=== PATIENT | female | born 1975 | race African-American/Black ===

== ENCOUNTER 2018-07-30 21:10 | Emergency (ER) | payer MEDICAID ==
[2018-07-30] MEDS ORDERED: hydrOXYzine 25 MG TAB ONE (21:50)
[2018-07-30] MEDS ORDERED: methylPREDNISolone Acetate 40 mg/ml Vial ONE (21:50)
== END 2018-07-30 22:14 | disposition home or self-care (01) ==
LOC: BURERS 21:10
DX: T63.461A Toxic effect of venom of wasps, accidental (unintentional), initial encounter (principal); I10 Essential (primary) hypertension; G43.909 Migraine, unspecified, not intractable, without status migrainosus; F32.9 Major depressive disorder, single episode, unspecified; F17.210 Nicotine dependence, cigarettes, uncomplicated; Z79.899 Other long term (current) drug therapy
CPT/HCPCS: 96372; J1030